=== PATIENT | male | born 1990 | race Caucasian/White ===

== ENCOUNTER 2016-10-15 10:59 | Emergency (ER) | payer OTHER ==
[~2016-10-15] VITALS: Ht 182.9 cm; Wt 106.3 kg
[2016-10-15 11:06] VITALS: TEMP 36.6; Ht 182.9 cm; Wt 106.3 kg
[2016-10-15] MEDS ORDERED: LEVE500T13 PO (11:23)
[2016-10-15] MEDS ORDERED: KETO30IN6 IM (11:23)
[2016-10-15] MEDS ORDERED: METO25TA56 PO (11:23)
[2016-10-15] MEDS ORDERED: MTR600 PO (11:23)
--- NOTE | 2016-10-15 11:54 | DIAGNOSTIC IMAGING REPORT ---
LEFT SHOULDER MIN 2 VIEWS ROUTINE HISTORY: 26 years-old Male Left shoulder pain, concern for dislocation COMPARISON: None available TECHNIQUE: 3 views of the left shoulder FINDINGS: No acute fracture, dislocation or significant degenerative changes. Imaged lung field is clear. No foreign body. IMPRESSION: Normal left shoulder radiographs. The above report was generated using voice recognition software. It may contain grammatical, syntax or spelling errors. Electronically signed by: Byron Erickson M.D. 10/15/2016 11:53 AM Dictated Date/Time: 10/15/2016 11:52 AM
--- NOTE | 2016-10-15 13:08 | DIAGNOSTIC IMAGING REPORT ---
LEFT RIBS UNILATERAL WITH PA CHEST CLINICAL HISTORY: Left medial/posterior rib pain s/p fall trauma. Pain. COMPARISON STUDY: None FINDINGS: Negative study. No acute process of the chest. IMPRESSION: Negative study The above report was generated using voice recognition software. It may contain grammatical, syntax or spelling errors. Electronically signed by: Ruslan Smith M.D. 10/15/2016 1:06 PM Dictated Date/Time: 10/15/2016 1:04 PM
--- NOTE | 2016-10-15 13:21 | EMERGENCY ROOM VISIT NOTE ---
History First contact with patient: 11:30 Chief Complaint: SHOULDER PAIN Stated Complaint: L SHOULDER DISLOCATION History of Present Illness The patient is a 26 year old male who presents to the Emergency Room via private vehicle with complaints of "left shoulder dislocation". The patient states that yesterday around 610, patient dove for a fly ball while playing softball, and his arm was fully extended and when he landed he landed on his left side. He notes that he has pain in his left shoulder, that he rates as an 8/10. He also has left-sided neck pain and pain in his left superior ribs. He denies any chest pain, shortness of breath. He denies any numbness or tingling in the left arm. Review of Systems A complete 6-point Review of Systems was discussed with the patient, with pertinent positives and negatives listed in the History of Present Illness. All remaining Review of Systems questions can be considered negative unless otherwise specified. Past Medical/Surgical History No pertinent at this time. Family History No pertinent at this time. Social History Smoking Status: Former Smoker Social History: Patient is currently incarcerated at [facility]. Current/Historical Medications Scheduled Ibuprofen (Ibuprofen), 600 MG PO TID Ketorolac Tromethamine (Ketorolac Tromethamine), 60 MG IM DAILY Levetiracetam (Keppra), 500 MG PO BID Metoprolol Tartrate (Lopressor) (Lopressor), 25 MG PO BID Allergies Coded Allergies: No Known Allergies (Unverified , 10/15/16) Physical Exam Vital Signs Date Time Temp Pulse Resp B/P (MAP) Pulse Ox O2 Delivery O2 Flow Rate FiO2 10/15/16 13:31 49 164/78 99 Room Air 10/15/16 11:06 36.6 53 18 112/73 95 Room Air Physical Exam VITAL SIGNS - Vital signs and nursing notes were reviewed. Patient is afebrile , normotensive, non-tachycardic and is saturating well on room air 95%. GENERAL -26-year-old male appearing his stated age who is in no acute distress. Communicates well with provider and answers questions appropriately. SKIN - Without rashes. Skin overlying the left upper arm is unremarkable. HEAD - NC/AT. EYES - Sclera anicteric. EARS - No deformities of external structures noted on gross examination bilaterally. NOSE - Midline and without cyanosis. No epistaxis or purulent drainage noted. MOUTH/OROPHARYNX - Without perioral cyanosis. NECK - Neck with FROM. Supple to palpation. No C-spine tenderness. There is tenderness to palpation overlying the musculature of the left lateral neck. LUNGS - Chest wall symmetric without accessory muscle use, intercostals retractions, or central cyanosis. Normal vesicular breath sounds CTA B/L. No wheezes, rales, or rhonchi appreciated. CARDIAC - RRR with S1/S2. No murmur, rubs, or gallops appreciated. MUSCULOSKELETAL: there is tenderness to palpation overlying the left shoulder, left anterior chest, left medial ribs superiorly. There is no flail chest, or palpable bony deformity. EXTREMITIES - No clubbing or peripheral cyanosis. No pretibial edema present. Patient is neurovascularly intact in left upper extremity. There is limited range of motion secondary to pain elicited upon abduction of the left shoulder. It appears to be anatomically aligned and not dislocated. +5/5 strength noted in UE/LE bilaterally. Medical Decision & Procedures ER Provider Diagnostic Interpretation: LEFT RIBS UNILATERAL WITH PA CHEST CLINICAL HISTORY: Left medial/posterior rib pain s/p fall trauma. Pain. COMPARISON STUDY: None FINDINGS: Negative study. No acute process of the chest. IMPRESSION: Negative study The above report was generated using voice recognition software. It may contain grammatical, syntax or spelling errors. Electronically signed by: Ruslan Smith M.D. 10/15/2016 1:06 PM Dictated Date/Time: 10/15/2016 1:04 PM LEFT SHOULDER MIN 2 VIEWS ROUTINE HISTORY: 26 years-old Male Left shoulder pain, concern for dislocation COMPARISON: None available TECHNIQUE: 3 views of the left shoulder FINDINGS: No acute fracture, dislocation or significant degenerative changes. Imaged lung field is clear. No foreign body. IMPRESSION: Normal left shoulder radiographs. The above report was generated using voice recognition software. It may contain grammatical, syntax or spelling errors. Electronically signed by: Byron Erickson M.D. 10/15/2016 11:53 AM Dictated Date/Time: 10/15/2016 11:52 AM Medical Decision Patient was seen and evaluated as above. After obtaining a thorough history and physical examination radiographs obtained the left shoulder. This was found to be negative. Patient does appear to have anatomic alignment of the shoulder both on radiograph and physical examination. He was reevaluated and was experiencing tenderness in the left superior medial rib cage, working anterior and posteriorly. There is no evidence of flail chest. Unilateral rib series with chest x-ray was obtained. No evidence of pneumothorax, dislocation or rib fracture. I do not suspect hemoperitoneum. Patient's vital signs are stable. At this time I believe she is most likely experiencing a potential tear in the ligaments/musculature of the left shoulder without any emergent process. No evidence of C-spine fracture. He is educated upon management today 's findings, was fitted with a arm sling, it is recommended that conservative management be approached with follow-up with orthopedics. He was educated upon worrisome symptoms which to return, had questions prior to discharge, and was discharged to the [facility] in good condition. ] In the evaluation and treatment of this patient, the following differential diagnoses were considered: Shoulder Contusion, Shoulder Fracture, Shoulder Dislocation, Thoracic Outlet Syndrome, Adhesive Capsulitis, Rotator Cuff Tear, Proximal Clavicle Head Fracture, Apical Pneumonia, Pneumothorax, Hemothorax, or TB. Impression Primary Impression: Fall Additional Impressions: Shoulder pain, left Rib pain on left side Departure Information Dispostion Home / Self-Care Condition GOOD Referrals [facility] (PCP) [facility] D[facility] Patient Instructions My [facility] Additional Instructions You have been treated in the Emergency Department for Shoulder Pain. For pain control, you can use the following fcyy-dyf-izuteol medicines (if >12 yo): - Regular strength (325mg/tab) Tylenol (acetaminophen) 2 tabs every 4-6 hours as needed. Do not exceed 12 tablets in a 24 hour period. Avoid taking more than 3 grams (3000 mg) of Tylenol per day. This includes any other sources of acetaminophen you may take on a regular basis. - Regular strength (200 mg/tab) Advil (ibuprofen) 1-2 tabs every 4-6 hours as needed. Do not exceed a dose of 3200 mg per day. If this is a recent injury (<24 hrs), ice can be applied to the area of pain for the first 3 days to help decrease pain and inflammation. You have been provided the number for an Orthopaedic Surgeon. You should call this number as soon as possible to establish a follow-up visit from today's Emergency Department visit. Keep the shoulder brace/sling in place until evaluated by Orthopedics. Continue to perform range of motion exercises several times per day to help prevent the development of a "frozen shoulder". Return to the Emergency Department if your current symptoms worsen despite treatment course outlined above, or if you develop any of the following symptoms : intractable pain despite aforementioned treatment course or new onset of numbness or tingling of the arm. LEFT RIBS UNILATERAL WITH PA CHEST CLINICAL HISTORY: Left medial/posterior rib pain s/p fall trauma. Pain. COMPARISON STUDY: None FINDINGS: Negative study. No acute process of the chest. IMPRESSION: Negative study The above report was generated using voice recognition software. It may contain grammatical, syntax or spelling errors. Electronically signed by: Ruslan Smith M.D. 10/15/2016 1:06 PM Dictated Date/Time: 10/15/2016 1:04 PM LEFT SHOULDER MIN 2 VIEWS ROUTINE HISTORY: 26 years-old Male Left shoulder pain, concern for dislocation COMPARISON: None available TECHNIQUE: 3 views of the left shoulder FINDINGS: No acute fracture, dislocation or significant degenerative changes. Imaged lung field is clear. No foreign body. IMPRESSION: Normal left shoulder radiographs. The above report was generated using voice recognition software. It may contain grammatical, syntax or spelling errors. Electronically signed by: Byron Erickson M.D. 10/15/2016 11:53 AM Dictated Date/Time: 10/15/2016 11:52 AM Problem Qualifiers
[2016-10-15 13:31] VITALS: BP 164/78; PULSE 49; O2SAT 99
== END 2016-10-15 13:39 | disposition home or self-care (01) ==
LOC: C.EDB 11:02 → C.EDD 13:39
DX: M25.512 Pain in left shoulder (principal); R07.81 Pleurodynia; W18.30XA Fall on same level, unspecified, initial encounter; Y92.149 Unspecified place in prison as the place of occurrence of the external cause; Y93.64 Activity, baseball; M54.2 Cervicalgia; Z87.891 Personal history of nicotine dependence